=== PATIENT | male | born 1985 | race African-American/Black ===

== ENCOUNTER 2019-05-24 21:55 | Emergency (ER) | payer BC ==
[2019-05-24] MEDS ORDERED: diPHENhydraMINE IV* 50 MG/ML 1 ml VIAL (BENADRYL) IM ONE (21:58)
[2019-05-24] MEDS ORDERED: LORazepam INJ* 2 MG/ML 1 ML VIAL IM ONE (21:58)
[2019-05-24] MEDS ORDERED: Haloperidol INJ IV/IM* 5 MG/ML AMP IM ONE (21:58)
[2019-05-24] MEDS ORDERED: LORazepam INJ* 2 MG/ML 1 ML VIAL ONE (21:58)
[2019-05-24] MEDS ORDERED: Haloperidol INJ IV/IM* 5 MG/ML AMP ONE (21:58)
[2019-05-24] MEDS ORDERED: diPHENhydraMINE IV* 50 MG/ML 1 ml VIAL (BENADRYL) ONE (21:58)
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
[2019-05-24 22:38] LABS: ABS Eosinophils 0.2 10^3/ul (0-0.6); ABS Lymphocytes 2.5 10^3/ul (1.0-4.8); ABS Monocytes 0.5 10^3/ul (0-0.8); ABS Neutrophils 4.6 10^3/ul (1.5-7.7); Eosinophil % 2.9 %; Hematocrit 44 % (42-52); Lymphocyte % 31.7 %; Mean Corpuscular HGB Conc 34 g/dL (31-36); Mean Corpuscular Hemoglobin 30 pg (27-31); Mean Corpuscular Volume 87 fL (80-94); Mean Platelet Volume 8.5 fL (7.4-10.4); Nucleated Red Blood Cells % 0.1; Platelet Count 290 10^3/uL (150-450); Red Blood Count 5.06 10^6 /uL (4.18-5.48); Red Cell Distribution Width 13 % (10-15); White Blood Count 7.7 10^3/uL (3.5-10.8)
[2019-05-24 22:52] LABS: Urine Appearance Cloudy; Urine Bacteria Absent (Absent); Urine Bilirubin Negative (Negative); Urine Blood 2+ (Negative); Urine Color Yellow; Urine Glucose Negative (Negative); Urine Ketones Negative (Negative); Urine Nitrite Negative (Negative); Urine Protein 2+(100 mg/dL) (Negative); Urine Red Blood Cell Trace(0-2/hpf) (Absent); Urine Specific Gravity 1.011 (1.010-1.030); Urine Squamous Epithelial Cell Present (Absent); Urine Urobilinogen Negative (Negative); Urine White Blood Cell Trace(0-5/hpf) (Absent)
[2019-05-24 22:53] LABS: ALT 35 U/L (7-52); AST 36 U/L (13-39); Albumin 4.8 g/dL (3.2-5.2); Albumin/Globulin Ratio 1.6 (1-3); Alkaline Phosphatase 73 U/L (34-104); Anion Gap 14 mmol/L (2-11); BUN/Creatinine Ratio 11.7 (8-20); Blood Urea Nitrogen 15 mg/dL (6-24); CO2 Carbon Dioxide 19 mmol/L (22-32); Calcium 9.1 mg/dL (8.6-10.3); Chloride 108 mmol/L (101-111); EGFR African American 78.3 (>60); EGFR Non-African American 64.7 (>60); Glucose 142 mg/dL (70-100); Potassium 3.6 mmol/L (3.5-5.0); Sodium 141 mmol/L (135-145); Total Protein 7.8 g/dL (6.4-8.9)
[2019-05-24 23:00] LABS: Acetaminophen < 15 mcg/mL; Alcohol 340 mg/dL (<10); Salicylate < 2.50 mg/dL (<30)
[2019-05-24 23:02] LABS: Urine Benzodiazepine Screen None Detected (None Detect); Urine Opiates Screen None Detected (None Detect)
--- NOTE | 2019-05-25 10:50 | ED ---
Progress - Progress Note Progress Note: Patient signed out from Dr. Hitchcock upon shift change 05/25/19 07:00 pending disposition. Course/Dx - Course Course Of Treatment: The patient was signed out by Dr. Hitchcock at shift change. Patient came into the emergency room with alcohol intoxication. Patient was agitated and he received Haldol, Benadryl and Ativan. At this time the patient is hemodynamically stable. At this time the patient is alert and oriented 3, he is hemodynamically stable, he is sober with a good steady walk without any ataxia. Therefore the patient will be discharged home with follow-up with PCP. - Diagnoses Provider Diagnoses: Alcohol intoxication Discharge ED - Sign-Out/Discharge Documenting (check all that apply): Patient Departure - Discharge Patient Received Moderate/Deep Sedation with Procedure: No - Discharge Plan Condition: Stable Disposition: HOME Patient Education Materials: Abuse of Alcohol (ED), Polysubstance Abuse (ED) Referrals: Adán Taylor MD [Primary Care Provider] - As Soon As Possible - Billing Disposition and Condition Condition: STABLE Disposition: Home - Attestation Statements Document Initiated by Scribe: Yes Documenting Scribe: Cande Reyes Provider For Whom Benedicto is Documenting (Include Credential): Sree Sosa MD Scribe Attestation: ICande, scribed for Sree Sosa MD on 05/25/19 at 5532. Scribe Documentation Reviewed: Yes Provider Attestation: The documentation as recorded by the Cande moeller accurately reflects the service I personally performed and the decisions made by me, Sree Sosa MD Status of Scribe Document: Viewed
[2019-05-25 11:11] VITALS: BP 147/95
== END 2019-05-25 11:09 | disposition home or self-care (01) ==
LOC: ED 21:55
DX: F10.929 Alcohol use, unspecified with intoxication, unspecified (principal); J32.9 Chronic sinusitis, unspecified
CPT/HCPCS: 36415; 70450; 80053; 80307; 80320; 80329; 81003; 81015; 84443; 85025; 87086; 96372; 99285; G0480; J1200; J1630; J2060